=== PATIENT | male | born 1965 | race Two or more races ===

== ENCOUNTER → 2019-12-29 | Outpatient (CLI) | payer MEDICARE | END | disposition home or self-care (01) | LOC: MSC 12:05 | PROVIDERS: ATTEND Anesthesiology | DX: M46.96 Unspecified inflammatory spondylopathy, lumbar region (principal); M47.27 Other spondylosis with radiculopathy, lumbosacral region; M62.830 Muscle spasm of back; M40.299 Other kyphosis, site unspecified; M79.2 Neuralgia and neuritis, unspecified; M79.604 Pain in right leg; R20.2 Paresthesia of skin; M54.2 Cervicalgia; Z79.891 Long term (current) use of opiate analgesic; Z79.1 Long term (current) use of non-steroidal anti-inflammatories (NSAID) ==

== ENCOUNTER 2020-01-26 10:30 | Outpatient (CLI) | payer MEDICARE | END 2020-01-26 23:59 | disposition home or self-care (01) | LOC: MSC 10:30 | PROVIDERS: ATTEND Anesthesiology | DX: M46.96 Unspecified inflammatory spondylopathy, lumbar region (principal); M47.27 Other spondylosis with radiculopathy, lumbosacral region; M62.830 Muscle spasm of back; M40.299 Other kyphosis, site unspecified; M79.2 Neuralgia and neuritis, unspecified; Z74.09 Other reduced mobility; R53.1 Weakness; Z79.891 Long term (current) use of opiate analgesic; Z79.1 Long term (current) use of non-steroidal anti-inflammatories (NSAID) ==